=== PATIENT | male | born 1950 | race Caucasian/White ===

== ENCOUNTER 2017-07-16 03:58 | Emergency (ER) | payer OTHER ==
[~2017-07-16] VITALS: Ht 177.8 cm; Wt 83.9 kg
[~2017-07-16 03:58] MED LIST: CIPRO500 MG; COZAAR25 MG; NORVASC10 MG; TAMSULOSIN HCL0.4 MG PO; TOPROL XL25 M1; ULTRAM50 MG PO; XANAX0.25 MG
[2017-07-16] MEDS ORDERED: ALBUTEROL2.5 MG/3 M IH (07:36)
[2017-07-16] MEDS ORDERED: ZYNCOF 20-400120 ML PO (07:36)
== END 2017-07-16 08:20 | disposition home or self-care (01) ==
LOC: ER 03:58
DX: J40 Bronchitis, not specified as acute or chronic (principal); R06.02 Shortness of breath; J11.1 Influenza due to unidentified influenza virus with other respiratory manifestations

== ENCOUNTER 2019-01-15 15:29 | Outpatient (CLI) | payer OTHER ==
[~2019-01-15 15:29] MED LIST changes: +ALBUTEROL2.5 MG/3 M IH; +ZYNCOF 20-400120 ML PO
== END 2019-01-15 15:31 | disposition home or self-care (01) ==
LOC: TOM 15:29
DX: N40.0 Benign prostatic hyperplasia without lower urinary tract symptoms (principal); N20.0 Calculus of kidney; N45.3 Epididymo-orchitis

== ENCOUNTER 2020-08-20 14:14 | Outpatient (CLI) | payer OTHER | END 2020-08-20 14:23 | disposition home or self-care (01) | LOC: SONOGRAMA 14:14 → MAMO-SONO 14:15 → SONOGRAMA 14:23 | PROVIDERS: ATTEND Urology | DX: N20.0 Calculus of kidney (principal); R31.1 Benign essential microscopic hematuria ==